=== PATIENT | female | born 1980 | race Caucasian/White ===

== ENCOUNTER 2017-02-28 16:15 | Emergency (ER) | payer MEDICAID, OTHER ==
[~2017-02-28] VITALS: Ht 175.3 cm; Wt 80.5 kg
[~2017-02-28 16:15] MED LIST: ALBU8I INH; AUGM875T PO; DEXTLIQ PO
[2017-02-28 16:17] VITALS: BP 164/89; PULSE 79; RESP 18; TEMP 97.7; O2SAT 99
[2017-02-28] MEDS ORDERED: VENTAER INH (16:43)
[2017-02-28] MEDS ORDERED: MONT4CHW4 CHEW (16:43)
[2017-02-28] MEDS ORDERED: FLUT1INH INH (16:43)
[2017-02-28] MEDS ORDERED: ONDANSETRON HCL 4 MG/2 ML VIAL IV PUSH ONE (16:45)
[2017-02-28] MEDS ORDERED: MORPHINE SULFATE 4 MG/ML INJ IV PUSH ONE (16:45)
[2017-02-28] MEDS ORDERED: SODIUM CHLORIDE 0.9% FLUSH 10 ML FLUSH IV FLUSH PRN (16:45)
[2017-02-28] MEDS ORDERED: SODIUM CHLOR 0.9% 1000 ML INJ 1,000 ML IV ONE (16:45)
--- NOTE | 2017-02-28 16:48 | PD ---
HPI Chief Complaint: Abdominal Pain Time Seen by Provider: 16:22 Travel History International Travel<30 days: No Contact w/Intl Traveler<30days: No Traveled to known affect area: No History of Present Illness HPI 36-year-old female came to the emergency room with history of her quadrant pain. Says she has had this pain on and off for past 1 week and is progressively worsening specially since last . She has been nauseous. Patient has never had this kind of pain in the past. No vaginal discharge. No dysuria or hematuria. There was a bedside done prior to my arrival and that was negative. Vital signs are otherwise stable. PFSH Past Medical History Narrative Medical List of her past medical, surgical, social and family history was reviewed from the nursing note. Asthma: Yes Blood Disorders: No Heart Rhythm Problems: No Cancer: No Cardiovascular Problems: No High Cholesterol: No Chemotherapy: No Chest Pain: No Congestive Heart Failure: No COPD: No Diabetes: No Diminished Hearing: No Endocrine: No Gastrointestinal Disorders: Yes GERD: Yes Genitourinary: No Hiatal Hernia: No Immune Disorder: No Musculoskeletal: No Neurologic: No Psychiatric: No Reproductive: No Respiratory: Yes (asthma) Immunizations Current: Yes Migraines: Yes Radiation Therapy: No Sleep Apnea: No Thyroid Disease: No Ulcer: No ?: Not Ectopic : Yes (REMOVAL OF LEFT TUBE) Past Surgical History Cholecystectomy: Yes Genitourinary Surgery: Yes (ECTOPIC PREG.) Other Surgery: Yes (etopic , ) Social History Alcohol Use: Yes (SOCIALLY) Tobacco Use: No Substance Use: No Allergies-Medications (Allergen,Severity, Reaction): Coded Allergies: Percocet (Verified Allergy, Mild, itching, 02/28/17) Patient is not completely positive that this was the medication. Uncoded Allergies: coconut oil (Allergy, Unknown, cracked lips and throat pain, 03/09/16) Comments List of her allergies reviewed from the nursing note. Reported Meds & Prescriptions Reported Meds & Active Scripts Active Tramadol (Tramadol HCl) 50 Mg Tab 50 Mg PO Q6H PRN Reported Ventolin Hfa 18 GM Inh (Albuterol Sulfate) 90 Mcg/Act Aer 1 Puff INH Q4H PRN Montelukast (Montelukast Sodium) 4 Mg Chew 4 Mg CHEW HS Breo Ellipta Inh (Fluticasone/Vilanterol) 100-25 Mcg/Act Inh 1 Puff INH DAILY Use daily at the same time. Narrative Medication List of her home medications reviewed from the nursing note. Review of Systems Except as stated in HPI: all other systems reviewed are Neg Physical Exam Narrative GENERAL: Awake, alert, moderate distress SKIN: Focused skin assessment warm/dry. HEAD: Atraumatic. Normocephalic. EYES: Pupils equal and round. No scleral icterus. No injection or drainage. ENT: No nasal bleeding or discharge. Mucous membranes pink and moist. NECK: Trachea midline. No JVD. CARDIOVASCULAR: Regular rate and rhythm. No murmur appreciated. RESPIRATORY: No accessory muscle use. Clear to auscultation. Breath sounds equal bilaterally. GASTROINTESTINAL: Abdomen soft, right lower quadrant tenderness on deep palpation, nondistended. Hepatic and splenic margins not palpable. MUSCULOSKELETAL: No obvious deformities. No clubbing. No cyanosis. No edema. NEUROLOGICAL: Awake and alert. No obvious cranial nerve deficits. Motor grossly within normal limits. Normal speech. PSYCHIATRIC: Appropriate mood and affect; insight and judgment normal. Data Data Last Documented VS Vital Signs Date Time Temp Pulse Resp B/P Pulse Ox O2 Delivery O2 Flow Rate FiO2 02/28/17 18:30 79 18 120/69 99 Room Air 02/28/17 16:17 97.7 Orders Complete Blood Count With Diff (02/28/17 16:41) Comprehensive Metabolic Panel (02/28/17 16:41) Urinalysis - C+S If Indicated (02/28/17 16:41) Ct Abd/Pel W/O Iv Contrast (02/28/17 16:41) Iv Access Insert/Monitor (02/28/17 16:41) Ecg Monitoring (02/28/17 16:41) Oximetry (02/28/17 16:41) Sodium Chloride 0.9% Flush (Ns Flush) (02/28/17 16:45) Sodium Chlor 0.9% 1000 Ml Inj (Ns 1000 M (02/28/17 16:45) Morphine Inj (Morphine Inj) (02/28/17 16:45) Ondansetron Inj (Zofran Inj) (02/28/17 16:45) Us Pelvis Comp W Doppler (02/28/17 ) Ketorolac Inj (Toradol Inj) (02/28/17 19:30) Gc And Chlamydia Pcr (02/28/17 19:19) Wet Prep Profile (02/28/17 19:19) Labs Laboratory Tests Test 02/28/17 02/28/17 16:50 20:05 White Blood Count 6.4 TH/MM3 Red Blood Count 4.68 MIL/MM3 Hemoglobin 12.8 GM/DL Hematocrit 38.2 % Mean Corpuscular Volume 81.5 FL Mean Corpuscular Hemoglobin 27.4 PG Mean Corpuscular Hemoglobin 33.6 % Concent Red Cell Distribution Width 12.8 % Platelet Count 216 TH/MM3 Mean Platelet Volume 8.8 FL Neutrophils (%) (Auto) 70.1 % Lymphocytes (%) (Auto) 21.1 % Monocytes (%) (Auto) 8.1 % Eosinophils (%) (Auto) 0.4 % Basophils (%) (Auto) 0.3 % Neutrophils # (Auto) 4.5 TH/MM3 Lymphocytes # (Auto) 1.4 TH/MM3 Monocytes # (Auto) 0.5 TH/MM3 Eosinophils # (Auto) 0.0 TH/MM3 Basophils # (Auto) 0.0 TH/MM3 CBC Comment DIFF FINAL Differential Comment Urine Color LIGHT-YELLOW Urine Turbidity CLEAR Urine pH 6.0 Urine Specific [place] 1.011 Urine Protein NEG mg/dL Urine Glucose (UA) NEG mg/dL Urine Ketones NEG mg/dL Urine Occult Blood NEG Urine Nitrite NEG Urine Bilirubin NEG Urine Urobilinogen LESS THAN 2.0 MG/DL Urine Leukocyte Esterase NEG Urine WBC LESS THAN 1 /hpf Urine Squamous Epithelial 2 /hpf Cells Microscopic Urinalysis Comment CULT NOT INDICATED Sodium Level 139 MEQ/L Potassium Level 3.5 MEQ/L Chloride Level 105 MEQ/L Carbon Dioxide Level 26.6 MEQ/L Anion Gap 7 MEQ/L Blood Urea Nitrogen 12 MG/DL Creatinine 0.52 MG/DL Estimat Glomerular Filtration 135 ML/MIN Rate Random Glucose 98 MG/DL Calcium Level 8.6 MG/DL Total Bilirubin 0.4 MG/DL Aspartate Amino Transf 17 U/L (AST/SGOT) Alanine Aminotransferase 31 U/L (ALT/SGPT) Alkaline Phosphatase 65 U/L Total Protein 7.3 GM/DL Albumin 3.8 GM/DL Clue Cells (Wet Prep) NS Vaginal Trichomonas (Wet Prep) NS Vaginal Yeast (Wet Prep) NS Chlamydia trachomatis DNA NOT DETECTED (PCR) Neisseria gonorrhoeae DNA NOT DETECTED (PCR) MDM Medical Decision Making Medical Screen Exam Complete: Yes Emergency Medical Condition: Yes Medical Record Reviewed: Yes Differential Diagnosis Appendicitis, ovarian torsion, abdominal pain NOS Narrative Course 4:47 PM awaiting for the blood test result and the CAT scan to be done and resulted. Patient will be getting pain medication and IV fluid bolus. Case will be signed over to the oncoming ER physician at 5 PM. Procedures EKG Prior to Arrival: No Scripts Tramadol 50 Mg Tab50 Mg PO Q6H PRN (PAIN) #12 TAB Ref 0 Prov:Eloy Montero MD 02/28/17 Lissette Pinzon MD February 28, 2017 16:48
[2017-02-28 17:10] VITALS: O2SAT 99
[2017-02-28 17:12] LABS: AUTOMATED NEUTROPHIL # 4.5 TH/MM3 (1.8-7.7); BASOPHIL % 0.3 % (0.0-2.0); EOSINOPHIL % 0.4 % (0.0-4.0); HEMATOCRIT 38.2 % (35.0-46.0); HEMO FLAGS DIFF FINAL; LYMPH % 21.1 % (9.0-44.0); LYMPHOCYTE # 1.4 TH/MM3 (1.0-4.8); MEAN CELL VOLUME 81.5 FL (80.0-100.0); MEAN CORPUSCULAR HEMOGLOBIN 27.4 PG (27.0-34.0); MEAN CORPUSCULAR HGB CONC 33.6 % (32.0-36.0); MONO % 8.1 % (0.0-8.0); NEUT % 70.1 % (16.0-70.0); PLATELET COUNT 216 TH/MM3 (150-450); RED BLOOD COUNT 4.68 MIL/MM3 (4.00-5.30); RED CELL DISTRIBUTION WIDTH 12.8 % (11.6-17.2); WHITE BLOOD COUNT 6.4 TH/MM3 (4.0-11.0)
[2017-02-28 17:39] LABS: BLOOD, URINE NEG (NEG); GLUCOSE,URINE NEG (NEG); KETONE, URINE NEG (NEG); NITRITE,URINE NEG (NEG); SQUAMOUS EPITHELIAL CELL URINE 2 /hpf (0-5); URINE COLOR LIGHT-YELLOW (YELLW/STRAW)
[2017-02-28 17:41] LABS: ANION GAP 7 MEQ/L (5-15); AST (GOT) 17 U/L (15-37); BICARBONATE 26.6 MEQ/L (21.0-32.0); BLOOD UREA NITROGEN 12 MG/DL (7-18); CHLORIDE 105 MEQ/L (98-107); GLOMERULAR FILTRATION RATE 135 ML/MIN (>89); POTASSIUM 3.5 MEQ/L (3.5-5.1); SODIUM (NA) 139 MEQ/L (136-145)
[2017-02-28 17:44] LABS: ALKALINE PHOSPHATASE 65 U/L (45-117); ALT (GPT) 31 U/L (10-53); COMMENT (UR) CULT NOT INDICATED; CULTURE IF INDICATED CULT NOT INDICATED; TOTAL BILIRUBIN ADULT 0.4 MG/DL (0.2-1.0)
--- NOTE | 2017-02-28 17:58 | RADRPT ---
EXAM DATE/TIME: 02/28/2017 17:26 [facility] COMPARISON: No previous studies available for comparison. INDICATIONS : Abdomen pain. ORAL CONTRAST: No oral contrast ingested. RADIATION DOSE: 15.00 CTDIvol (mGy) MEDICAL HISTORY : None SURGICAL HISTORY : Cholecystectomy. ENCOUNTER: Initial ACUITY: 3 days PAIN SCALE: 8/10 LOCATION: Right lower quadrant TECHNIQUE: Volumetric scanning of the abdomen and pelvis was performed. Using automated exposure control and adjustment of the mA and/or kV according to patient size, radiation dose was kept as low as reasonably achievable to obtain optimal diagnostic quality images. FINDINGS: LOWER LUNGS: The visualized lower lungs are clear. LIVER: Homogeneous density without lesion. There is no dilation of the biliary tree. Post cholec ystectomy clips are noted. SPLEEN: Normal size without lesion. PANCREAS: Within normal limits. KIDNEYS: Normal in size and shape. There is no mass, stone, or hydronephrosis. ADRENAL GLANDS: Within normal limits. VASCULAR: There is no aortic aneurysm. BOWEL/MESENTERY: The stomach, small bowel, and colon demonstrate no acute abnormality. There is no free intraperitoneal air or fluid. ABDOMINAL WALL: Within normal limits. RETROPERITONEUM: There is no lymphadenopathy. BLADDER: No wall thickening or mass. REPRODUCTIVE: A 3.5 cm cyst is identified in the left adnexa. Uterus and ovary otherwise unremark able. INGUINAL: There is no lymphadenopathy or hernia. MUSCULOSKELETAL: Within normal limits for patient age. CONCLUSION: 3.5 cm left adnexal cyst. Status post cholecystectomy. No other significant abnormality. Darío Hannon MD on February 28, 2017 at 17:53 Board Certified Radiologist. This report was verified electronically.
[2017-02-28 18:30] VITALS: BP 120/69; PULSE 79; RESP 18; O2SAT 99
--- NOTE | 2017-02-28 18:48 | PD ---
Physical Exam Narrative The patient was initially evaluated by the previous provider and signed out to me at the beginning of my shift pending labs, CT, pelvic ultrasound, and disposition. See her note for further details. Briefly is a 36-year-old female with history of low cystectomy and left salpingectomy, here for evaluation of intermittent right lower quadrant pain for the last week. Patient has not had any vaginal bleeding or discharge. No urinary symptoms. She is unable to qualify the pain. She was given morphine by the previous provider with some improvement in symptoms. Initial vital signs show heart rate 79, blood pressure 164/89, pulse ox 99% on room air, oral temp of 97.7F. CBC is unremarkable. CMP is unremarkable. UA is not suggestive of UTI. CT abdomen pelvis: CONCLUSION: 3.5 cm left adnexal cyst. Status post cholecystectomy. No other significant abnormality. Pelvic ultrasound: CONCLUSION: Small left ovarian cyst Pelvic exam was performed by me in the presence of female nurse in shows normal external genitalia, normal cervix, no vaginal bleeding or discharge, mild right adnexal tenderness without masses, no left adnexal masses or tenderness. No CMT. Wet prep is negative for yeast, negative for clue cells, negative for Trichomonas. The patient is sexually active with only one partner whom she is to. Do not believe that this is PID. She is still having some right lower quadrant tenderness, however there are no peritoneal signs. She is stable for discharge home with outpatient follow-up with her primary care physician this week. She was informed on when to return to the emergency department. She verbalizes understanding and agreement with plan. Data Data Last Documented VS Vital Signs Date Time Temp Pulse Resp B/P Pulse Ox O2 Delivery O2 Flow Rate FiO2 02/28/17 18:30 79 18 120/69 99 Room Air 02/28/17 16:17 97.7 Orders Complete Blood Count With Diff (02/28/17 16:41) Comprehensive Metabolic Panel (02/28/17 16:41) Urinalysis - C+S If Indicated (02/28/17 16:41) Ct Abd/Pel W/O Iv Contrast (02/28/17 16:41) Iv Access Insert/Monitor (02/28/17 16:41) Ecg Monitoring (02/28/17 16:41) Oximetry (02/28/17 16:41) Sodium Chloride 0.9% Flush (Ns Flush) (02/28/17 16:45) Sodium Chlor 0.9% 1000 Ml Inj (Ns 1000 M (02/28/17 16:45) Morphine Inj (Morphine Inj) (02/28/17 16:45) Ondansetron Inj (Zofran Inj) (02/28/17 16:45) Us Pelvis Comp W Doppler (02/28/17 ) Ketorolac Inj (Toradol Inj) (02/28/17 19:30) Gc And Chlamydia Pcr (02/28/17 19:19) Wet Prep Profile (02/28/17 19:19) Labs Laboratory Tests Test 02/28/17 02/28/17 16:50 20:05 White Blood Count 6.4 TH/MM3 Red Blood Count 4.68 MIL/MM3 Hemoglobin 12.8 GM/DL Hematocrit 38.2 % Mean Corpuscular Volume 81.5 FL Mean Corpuscular Hemoglobin 27.4 PG Mean Corpuscular Hemoglobin 33.6 % Concent Red Cell Distribution Width 12.8 % Platelet Count 216 TH/MM3 Mean Platelet Volume 8.8 FL Neutrophils (%) (Auto) 70.1 % Lymphocytes (%) (Auto) 21.1 % Monocytes (%) (Auto) 8.1 % Eosinophils (%) (Auto) 0.4 % Basophils (%) (Auto) 0.3 % Neutrophils # (Auto) 4.5 TH/MM3 Lymphocytes # (Auto) 1.4 TH/MM3 Monocytes # (Auto) 0.5 TH/MM3 Eosinophils # (Auto) 0.0 TH/MM3 Basophils # (Auto) 0.0 TH/MM3 CBC Comment DIFF FINAL Differential Comment Urine Color LIGHT-YELLOW Urine Turbidity CLEAR Urine pH 6.0 Urine Specific [place] 1.011 Urine Protein NEG mg/dL Urine Glucose (UA) NEG mg/dL Urine Ketones NEG mg/dL Urine Occult Blood NEG Urine Nitrite NEG Urine Bilirubin NEG Urine Urobilinogen LESS THAN 2.0 MG/DL Urine Leukocyte Esterase NEG Urine WBC LESS THAN 1 /hpf Urine Squamous Epithelial 2 /hpf Cells Microscopic Urinalysis Comment CULT NOT INDICATED Sodium Level 139 MEQ/L Potassium Level 3.5 MEQ/L Chloride Level 105 MEQ/L Carbon Dioxide Level 26.6 MEQ/L Anion Gap 7 MEQ/L Blood Urea Nitrogen 12 MG/DL Creatinine 0.52 MG/DL Estimat Glomerular Filtration 135 ML/MIN Rate Random Glucose 98 MG/DL Calcium Level 8.6 MG/DL Total Bilirubin 0.4 MG/DL Aspartate Amino Transf 17 U/L (AST/SGOT) Alanine Aminotransferase 31 U/L (ALT/SGPT) Alkaline Phosphatase 65 U/L Total Protein 7.3 GM/DL Albumin 3.8 GM/DL Clue Cells (Wet Prep) NS Vaginal Trichomonas (Wet Prep) NS Vaginal Yeast (Wet Prep) NS MDM Supervised Visit with CRISTY: No Diagnosis Primary Impression: Abdominal pain Qualified Code: R10.31 - Right lower quadrant abdominal pain Additional Impression: Left ovarian cyst Referrals: Primary Care Physician 3 days Additional Instruction: Follow-up with your primary care physician this week. Return to the emergency department for worsening symptoms or any other concerns. Scripts Tramadol 50 Mg Tab50 Mg PO Q6H PRN (PAIN) #12 TAB Ref 0 Prov:Eloy Montero MD 02/28/17 Disposition: 01 DISCHARGE HOME Condition: Stable Eloy Montero MD February 28, 2017 18:49
--- NOTE | 2017-02-28 19:11 | RADRPT ---
EXAM DATE/TIME: 02/28/2017 18:17 [facility] COMPARISON: No previous studies available for comparison. INDICATIONS : Pelvic pain. MEDICAL HISTORY : Gastroesophageal reflux disease. . Ectopic . Asthma. Migraines. SURGICAL HISTORY : Cholecystectomy. Left salpingectomy. ENCOUNTER: Subsequent ACUITY: 1 day PAIN SCORE: 8/10 LOCATION: Bilateral pelvis MEASUREMENTS: UTERUS: 7.4 x 6.0 x 4.0 cm ENDOMETRIAL STRIPE: 5 mm RIGHT OVARY: 2.9 x 2.0 x 1.3 cm LEFT OVARY: 3.1 x 3.9 x 3.0 cm FINDINGS: UTERUS: The myometrium has homogeneous echotexture without mass. RIGHT OVARY: Ovary contains no mass or significant cystic lesion. In blood clot LEFT OVARY: Slightly greater than 3 cm simple cyst. Intact blood flow MISCELLANEOUS: No free fluid. CONCLUSION: Small left ovarian cyst Chi Rayo MD on February 28, 2017 at 19:06 Board Certified Radiologist. This report was verified electronically.
[2017-02-28] MEDS ORDERED: KETOROLAC TROMETHAMINE 30 MG/ML (IVP) VIAL IV PUSH ONE (19:30)
[2017-02-28] MEDS ORDERED: TRAM50TA PO (21:04)
[2017-02-28 23:15] LABS: CHLAMYDIA PCR NOT DETECTED (NOT DETECT); NEISSERIA PCR NOT DETECTED (NOT DETECT)
== END 2017-02-28 21:36 | disposition home or self-care (01) ==
LOC: NEPD 16:15
DX: R10.31 Right lower quadrant pain (principal); N83.202 Unspecified ovarian cyst, left side; J45.909 Unspecified asthma, uncomplicated; R11.0 Nausea
CPT/HCPCS: 74176; 76856; 80053; 81001; 85025; 87210; 87491; 87591; 93975; 96374; 96375; 99284; J1885; J2270; J2405; J7030